=== PATIENT | male | born 1940 ===

== ENCOUNTER → 2019-06-24 | Outpatient (REF) | payer MEDICARE, OTHER ==
[2019-06-24 17:37] LABS: INR 2.58; PROTHROMBIN TIME 27.5 SECONDS (11.8-14.0)
== END ==
LOC: M LABDRAWC 16:30
PROVIDERS: ATTEND Internal Medicine Cardiovascular Disease
DX: I48.2 Chronic atrial fibrillation (principal); Z79.84 Long term (current) use of oral hypoglycemic drugs; R06.02 Shortness of breath

== ENCOUNTER → 2019-07-15 | Outpatient (REF) | payer MEDICARE, OTHER ==
[2019-07-15 19:16] LABS: INR 2.78; PROTHROMBIN TIME 29.2 SECONDS (11.8-14.0)
== END ==
LOC: M LABDRAWC 16:17
PROVIDERS: ATTEND Internal Medicine Cardiovascular Disease
DX: Z79.01 Long term (current) use of anticoagulants (principal)